=== PATIENT | female | born 1975 | race Caucasian/White ===

== ENCOUNTER 2017-05-02 18:00 | Outpatient (CLI) | payer OTHER | END 2017-05-02 18:01 | disposition home or self-care (01) | LOC: SLEEPLAB 18:00 | PROVIDERS: ATTEND Family Medicine | DX: G47.33 Obstructive sleep apnea (adult) (pediatric) (principal); E66.9 Obesity, unspecified; R53.83 Other fatigue; R06.83 Snoring | CPT/HCPCS: 95806 ==